=== PATIENT | female | born 1940 | race Caucasian/White ===

== ENCOUNTER → 2016-07-19 | Outpatient (CLI) | payer OTHER ==
[~2016-07-19] MED LIST: ASPI-232 PEG; CLTP PO; HYD50 PEG; LEVO-217 PO; LISI20TA3 PO; LUTEIN PO; LXP/10 PO; MULT-506 PO; PRAV20TA PO; SNM/25100 PO
== END | disposition home or self-care (01) ==
LOC: C.MAMM 10:14
PROVIDERS: ATTEND Internal Medicine
DX: M81.0 Age-related osteoporosis without current pathological fracture (principal); M85.851 Other specified disorders of bone density and structure, right thigh; M85.852 Other specified disorders of bone density and structure, left thigh